=== PATIENT | female | born 1985 | race Two or more races ===

== ENCOUNTER → 2020-11-07 | Outpatient (CLI) | payer OTHER, SELFPAY | END | disposition home or self-care (01) | PROVIDERS: Visit Provider Obstetrics & Gynecology | DX: Z36.85 Encounter for antenatal screening for Streptococcus B (principal) | CPT/HCPCS: 87081 ==

== ENCOUNTER 2020-12-03 | Outpatient (CLI) | payer OTHER, SELFPAY ==
[2020-12-03 00:09] VITALS: BMI 27.4
[2020-12-03 00:17] VITALS: BP 111/73; PULSE 67; TEMP 36.3; O2SAT 96
--- NOTE | 2020-12-03 08:00 | OB.TRI.NOTE ---
HPI - General HPI Narrative NATASHA OLVERA, is a 35 F who presents at 39 6/7 weeks gestation wtih c/o decreased movement and contractions PFSH PFSH Home Medications oycilunh-ein-Kt-FA [] 1 tab PO DAILY 12/03/20 [History Last Taken 12/02/20 08:00] sertraline [Zoloft] 25 mg PO DAILY 12/03/20 [History Last Taken 12/02/20 08:00] Allergy/AdvReac Type Severity Reaction Status Date / Time No Known Allergies Allergy Verified 12/03/20 00:23 NST FHR Rate Baby A Baseline: 120 Variability:: Moderate Accelerations:: 15 x 15 Decelerations:: None NST Reactive:: Yes FHR Category:: Category I Uterine Activity:: 06/12 Assessment & Plan (1) 39 weeks gestation of : PLAN: Reactive NST Cervix 1cm, unchanged from prior exam Movement improved on observation d/c home
== END 2020-12-03 01:00 | disposition home or self-care (01) ==
LOC: WPOUT 00:07 → OBT 00:08
PROVIDERS: Referring Provider Obstetrics & Gynecology; Visit Provider Obstetrics & Gynecology
DX: O36.8130 Decreased fetal movements, third trimester, not applicable or unspecified (principal); O62.9 Abnormality of forces of labor, unspecified; Z3A.39 39 weeks gestation of pregnancy
CPT/HCPCS: 59025; 59050

== ENCOUNTER → 2023-03-24 | Outpatient (CLI) | payer BC, SELFPAY ==
[2023-03-29 18:07] LABS: Chlamydia By Nucleic Acid AMP Negative (Negative); Gonococcus By Nucleic Acid AMP Negative (Negative)
== END | disposition home or self-care (01) ==
LOC: LABSPEC 16:53
PROVIDERS: PCP Family Medicine; Visit Provider Registered Nurse
DX: Z34.90 Encounter for supervision of normal pregnancy, unspecified, unspecified trimester (principal)
CPT/HCPCS: 87086; 87491; 87591

== ENCOUNTER → 2023-04-12 | Outpatient (CLI) | payer BC, SELFPAY ==
[2023-04-12 08:08] LABS: Absolute Lymphocyte Count 1.59 X10^3/uL (0.83-4.51); Absolute Neutrophil Count 5.1 X10^3/uL (2.0-7.7); Basophil# 0.04 X10^3/uL; Basophil% 0.5 % (0-1); Eosinophil# 0.17 X10^3/uL; Eosinophils% 2.3 % (0-5); Hematocrit 38.3 % (37-47); Hemoglobin 12.4 g/dL (12.0-15.0); Lymphocyte # 1.59 X10^3/ul (0.83-4.51); Lymphocyte % 21.5 % (19-41); Mean Corp Hgb Conc 32.4 g/dL (32-36); Mean Corpuscular Hgb 28.1 pg (27.0-32.0); Mean Corpuscular Volume 86.8 fL (81-99); Mean Platelet Vol. 9.4 fl (6.2-12.0); Monocyte# 0.45 X10^3/uL; Monocyte% 6.1 % (0-10); NRBC Flagged by Analyzer 0 % (0-5); Neutrophil # 5.11 X10^3/uL (2.7-7.7); Neutrophil % 69.2 % (47-70); Platelet Count 342 K/mm3 (150-450); RBC Distribution Width CV 12.8 % (11.6-14.6); RBC Distribution Width SD 40.5 fl (35.1-43.9); Red Blood Count 4.41 M/mm3 (4.2-5.4); White Blood Count 7.4 K/mm3 (4.4-11.0)
[2023-04-12 08:35] LABS: NATERA MAILED SPECIMEN
[2023-04-12 09:31] LABS: HIV - WCH Non-Reactive (Nonreactive); Hepatitis B Surface Antigen Non-Reactive (Nonreactive); Hepatitis C Antibody Non-Reactive (Nonreactive); Rubella IgG Reactive (Nonreactive); Syphilis Antibodies Non-reactive
== END | disposition home or self-care (01) ==
LOC: LAB 07:34
PROVIDERS: PCP Family Medicine; Referring Provider Registered Nurse; Visit Provider Registered Nurse
DX: Z34.01 Encounter for supervision of normal first pregnancy, first trimester (principal)
CPT/HCPCS: 36415; 85025; 86703; 86762; 86780; 86803; 86850; 86900; 86901; 87340

== ENCOUNTER → 2023-07-23 | Outpatient (CLI) | payer BC, SELFPAY ==
[2023-07-23 10:41] LABS: Absolute Lymphocyte Count 1.19 X10^3/uL (0.83-4.51); Basophil# 0.04 X10^3/uL; Basophil% 0.3 % (0-1); Eosinophil# 0.12 X10^3/uL; Hematocrit 33.7 % (37-47); Hemoglobin 11.2 g/dL (12.0-15.0); Lymphocyte # 1.19 X10^3/ul (0.83-4.51); Lymphocyte % 9.9 % (19-41); Mean Corp Hgb Conc 33.2 g/dL (32-36); Mean Corpuscular Hgb 28.9 pg (27.0-32.0); Mean Corpuscular Volume 87.1 fL (81-99); Mean Platelet Vol. 9.8 fl (6.2-12.0); Monocyte# 0.64 X10^3/uL; Monocyte% 5.3 % (0-10); NRBC Flagged by Analyzer 0 % (0-5); Neutrophil # 10.01 X10^3/uL (2.7-7.7); Neutrophil % 82.9 % (47-70); Platelet Count 288 K/mm3 (150-450); RBC Distribution Width CV 13.2 % (11.6-14.6); RBC Distribution Width SD 41.1 fl (35.1-43.9); Red Blood Count 3.87 M/mm3 (4.2-5.4); White Blood Count 12.1 K/mm3 (4.4-11.0)
[2023-07-23 11:29] LABS: HIV - WCH Non-Reactive (Nonreactive); Syphilis Antibodies Non-reactive
[2023-07-23 11:37] LABS: Glucose Challenge Gest 1H 50g 101 mg/dL (70-140)
== END | disposition home or self-care (01) ==
LOC: LAB 10:05
PROVIDERS: PCP Family Medicine; Referring Provider Obstetrics & Gynecology; Visit Provider Obstetrics & Gynecology
DX: O09.90 Supervision of high risk pregnancy, unspecified, unspecified trimester (principal); Z3A.00 Weeks of gestation of pregnancy not specified; Z13.1 Encounter for screening for diabetes mellitus
CPT/HCPCS: 36415; 82950; 85025; 86703; 86780

== ENCOUNTER → 2023-09-29 | Outpatient (CLI) | payer BC, SELFPAY ==
--- NOTE | 2023-09-29 10:04 | US_ITS ---
STUDY: SECOND AND THIRD TRIMESTER OBSTETRICAL ULTRASOUND - LIMITED REASON FOR EXAM: Female, 38 years old AMA LMP: PRIOR ULTRASOUND: None. TECHNIQUE: Transabdominal TECHNICAL QUALITY: Adequate. FINDINGS: There is a single intrauterine fetus. The fetus is in a cephalic presentation. There is demonstrated cardiac activity with a heart rate of 132 bpm. There is a normal amniotic fluid volume. The largest amniotic fluid pocket measures 5.5 cm. The amniotic fluid index (AYLIN) is 13.6 cm. The placenta is posterior in location and is not low lying. There are Grade 1. placental changes. The cervix was not visualized. BIOMETRY: BPD: 9.2: 37 weeks, 1 days HC: 33.1: 37 weeks, 5 days AC: 31.8: 35 weeks, 5 days FL: 6.7: 34 weeks, 2 days Age by LMP: 35 weeks, 6 days. GELACIO by LMP: 10/28/2023. age by prior US: weeks, days. GELACIO by prior US: . age by current US: 36 weeks, 3 days. GELACIO by current US: 10/24/2023. Estimated weight: 2740 grams, +/- 411 grams, 45 percentile. Gender: US/OB Limited With Biometrics IMPRESSION: Single live fetus in a vertex presentation. survey not performed on this exam. Placenta is grade 1 and is not low-lying. Cervix is closed. age by current US: 36 weeks, 3 days. GELACIO by current US: 10/24/2023. Estimated weight: 2740 grams, +/- 411 grams, 45 percentile. Electronically Signed: Francisco Orellana MD at 17:59 EDT ,
== END | disposition home or self-care (01) ==
LOC: US 10:03
PROVIDERS: PCP Family Medicine; Referring Provider Nurse Practitioner Women's Health; Visit Provider Nurse Practitioner Women's Health
DX: Z34.90 Encounter for supervision of normal pregnancy, unspecified, unspecified trimester (principal)
CPT/HCPCS: 76816

== ENCOUNTER 2023-10-08 17:01 | Outpatient (CLI) | payer BC, SELFPAY | END 2023-10-08 23:59 | disposition home or self-care (01) | LOC: LABSPEC 17:03 | PROVIDERS: PCP Family Medicine; Referring Provider Obstetrics & Gynecology; Visit Provider Obstetrics & Gynecology | DX: O09.90 Supervision of high risk pregnancy, unspecified, unspecified trimester (principal); Z3A.37 37 weeks gestation of pregnancy | CPT/HCPCS: 87081 ==

== ENCOUNTER 2023-10-22 11:08 | Outpatient (CLI) | payer BC, SELFPAY ==
--- NOTE | 2023-10-22 11:28 | US_ITS ---
STUDY: SECOND AND THIRD TRIMESTER OBSTETRICAL ULTRASOUND - LIMITED REASON FOR EXAM: Female, 38 years old low amniotic fluid LMP: January 21, 2023. PRIOR ULTRASOUND: None. TECHNIQUE: Transabdominal TECHNICAL QUALITY: Adequate. FINDINGS: There is a single intrauterine fetus. The fetus is in a cephalic presentation. There is demonstrated cardiac activity with a heart rate of 144 bpm. There is a normal amniotic fluid volume. The largest amniotic fluid pocket measures 6.9 cm. The amniotic fluid index (AYLIN) is 9.5 to cm. The placenta is fundal in location. There are Grade 1 placental changes. BIOMETRY: Age by LMP: 39 weeks, 1 days. GELACIO by LMP: October 28, 2023. US/OB Limited (No Biometrics) IMPRESSION: Unremarkable fluid index is within normal limits. Electronically Signed: Cole Zhu MD at 13:57 EDT ,
[2023-10-22 11:43] VITALS: BP 109/72; PULSE 72; O2SAT 90
[2023-10-22 11:44] VITALS: PULSE 71; O2SAT 96
--- NOTE | 2023-10-23 07:47 | OB.TRI.HP_ITS ---
HPI - General General Date of Service: 10/22/23 HPI Narrative NATASHA OLVERA, is a 38 F who presents at 39 weeks with low AYLIN on portable us in office, sent to for extended monitoring and formal ultrasound. +fm, denied ctx/lof/vb. Maternal Data Information GELACIO Calculator Estimated Delivery Date Method Current WG Current Estimate 10/28/23 LMP (Certain) 39w 2d PFSH PFSH Medical History Encounter for induction of labor Precipitous delivery 39 weeks gestation of Home Medications ?Medication ?Instructions ?Recorded ?Last Taken ?Type gzcuowom-xrw-Ng-FA 1 mg 1 tab PO DAILY 12/03/20 12/02/20 08:00 History tablet ondansetron 4 mg disintegrating 4 mg PO Q8H #30 tabs 03/15/23 Unknown Rx tablet sertraline 25 mg tablet (Zoloft) 25 mg PO DAILY 10/13/23 Unknown History Allergy/AdvReac Type Severity Reaction Status Date / Time No Known Allergies Allergy Verified 10/22/23 10:40 Family History Mother Thyroid cancer, Onset Age: 37 Brain aneurysm Polycystic kidney disease Brother Polycystic kidney disease Surgical History [place] teeth extracted Social History adopted: No household members: spouse and children number of children: 2 current occupational status: employed 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 current occupational exposures/hazards: No pets and animals: No history of recent travel: Yes ([place], [place], [place]) out of state: Yes out of country: No sexually active: Yes Smoking Status: Never smoker alcohol intake: current alcohol intake frequency: holidays/special occasions only details: not while substance use type: does not use well-balanced diet: daily or most days caffeine: No eating out: 4 or more times/week during the past year weight has: remained stable what type of physical activity do you participate in: aerobics and weight training frequency: 3-4 times per week duration: 15-30 minutes/day justina/restoration: [employer] seatbelt use: always do you feel safe at home: Yes 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 Date Name GA/Weeks Outcome Route Bth Weight Infant Gen Labor Lgth Anesthesia Del Locatn Provider FOB 10/21/18 Manuel 41 live - full term 8#10oz Female 17 hrs epidural Solomon Narendra 12/05/20 Christy 40 live - full term 7#10oz Female 9 hrs none Home(not planned) none Narendra Delivery Date: 10/21/18 Last Updated by: Ronda Reyez IOL post dates Delivery Date: 12/05/20 Last Updated by: Ronda Reyez Squad delivered baby at home. Visit Details Expected Delivery Route/Plan Labor Preferences- CB/BF classes: No labor support person: Narendra labor intervention preferences: [] pain management options preferred: limited cut cord/dad catch: [] : [] PP control planned: [] discussed possible routes of delivery and associated risks: [] special requests: [] Plans Covid status: [] Flu vaccine: [] Tdap vaccine: done Rhogam: [na LARC form signed: done Problem list reviewed and updated with the most current plan of care details and appropriate orders placed. Relevant counseling for the gestational age provided. Continue routine care and follow up unless otherwise noted in visit no jordy/problem list details OB Flowsheet Initial Weight: 147 lb Date -?-?-?-?-?-?-?-?-?-?-?-?- EGA Weight BP Urine Prot -?-?-?-?-?-?-?-?-?-?-?-?- Glucose FHR FuHt Pres Dilation -?-?-?-?-?-?-?-?-?-?-?-?- Effaced St Visit Note 03/24/23 -?-?-?-?-?-?-?-?-?-?-?-?- 8w 6d 147 lb 4 oz (+4 oz) 117/71 -?-?-?-?-?-?-?-?-?-?-?-?- 180 -?-?-?-?-?-?-?-?-?-?-?-?- LC- CRL con with LMP. accepts nipt. 04/19/23 -?-?-?-?-?-?-?-?-?-?-?-?- 12w 4d 146 lb 8 oz (-8 oz) 97/63 Negative -?-?-?-?-?-?-?-?-?-?-?-?- Negative 160 -?-?-?-?-?-?-?-?-?-?-?-?- LC-no vb/crampin g. [facility] referral for anatomy ordered. no concerns today. 05/27/23 -?-?-?-?-?-?-?-?-?-?-?-?- 18w 0d 152 lb (+5 lb) 118/58 Trace -?-?-?-?-?-?-?-?-?-?-?-?- Negative 154 -?-?-?-?-?-?-?-?-?-?-?-?- MH-No VB. Feelin g movement. MFM US today. Nausea much improved. 06/24/23 -?-?-?-?-?-?-?-?-?-?-?-?- 22w 0d 158 lb (+11 lb) 108/64 Negative -?-?-?-?-?-?-?-?-?-?-?-?- Negative 150 -?-?-?-?-?-?-?-?-?-?-?-?- SM- no vb lof go od fm no regualr ctx 07/23/23 -?-?-?-?-?-?-?-?-?-?-?-?- 26w 1d 164 lb (+17 lb) 118/66 Negative -?-?-?-?-?-?-?-?-?-?-?-?- Negative 150 -?-?-?-?-?-?-?-?-?-?-?-?- LC-no vb/ctx/lof . good fm. LC-no vb/ctx/lof. good fm. p assed glucola 08/17/23 -?-?-?-?-?-?-?-?-?-?-?-?- 29w 5d 164 lb (+17 lb) 106/65 Trace -?-?-?-?-?-?-?-?-?-?-?-?- Negative 145 30 -?-?-?-?-?-?-?-?-?-?-?-?- kw- no vb/lof/ct x. good fm. Tdap LARC today. desires PP tubal- to schedule PP visit with physician to use as pre op visit. 08/31/23 -?-?-?-?-?-?-?-?-?-?-?-?- 31w 5d 167 lb 6 oz (+20 lb 6 oz) 102/65 Negative -?-?-?-?-?-?-?-?-?-?-?-?- Negative 161 31 -?-?-?-?-?-?-?-?-?-?-?-?- MH-No VB, LOF. G ood Fm. Denies concerns 09/16/23 -?-?-?-?-?-?-?-?-?-?-?-?- 34w 0d 169 lb (+22 lb) 169 lb (+22 lb) 95/60 Negative -?-?-?-?-?-?-?-?-?-?-?-?- Negative 145 34 -?-?-?-?-?-?-?-?-?-?-?-?- SM- no vb lof go od fm no reuglar ctx 09/29/23 -?-?-?-?-?-?-?-?-?-?-?-?- 35w 6d 170 lb 6 oz (+23 lb 6 oz) 104/67 Negative -?-?-?-?-?-?-?-?-?-?-?-?- Negative 145 35 -?-?-?-?-?-?-?-?-?-?-?-?- JV- no lof, vagi nal bleeding, or dec fm. thinking about starting celexa now. gbs next visit. 10/08/23 -?-?-?-?-?-?-?-?-?-?-?-?- 37w 1d 170 lb 8 oz (+23 lb 8 oz) 107/67 Negative -?-?-?-?-?-?-?-?-?-?-?-?- Negative 140 37 Cephalic 1 -?-?-?-?-?-?-?-?-?-?-?-?- SM- no vb lof go od fm no regular 10/13/23 -?-?-?-?-?-?-?-?-?-?-?-?- 37w 6d 171 lb 6 oz (+24 lb 6 oz) 105/66 Trace -?-?-?-?-?-?-?-?-?-?-?-?- Negative 137 36 Cephalic 1 -?-?-?-?-?-?-?-?-?-?-?-?- JV- (error on la st note, not celexa, sertraline 25mg) JV- (error on last note, not celexa, sertraline 25mg). consider AYLIN next visit if fundal height gets lower. 10/22/23 -?-?-?-?-?-?-?-?-?-?-?-?- 39w 1d 172 lb 6 oz (+25 lb 6 oz) 106/69 Negative -?-?-?-?-?-?-?-?-?-?-?-?- Negative 134 36 Cephalic -?-?-?-?-?-?-?-?-?-?-?-?- JV- aylin at [facility] is 6.2. sending to L&D to perform growth and formal AYLIN. NST FHR Rate Baby A Baseline: 130 Variability:: Moderate Accelerations:: 15 x 15 Decelerations:: None NST Reactive:: Yes FHR Category:: Category I Uterine Activity:: none Assessment & Plan (1) Follow-up for low amniotic fluid volume, : COMMENT: AYLIN 9cm on formal scan. PLAN: Patient presents for triage evaluation secondary to low appearing fluid on portable ultrasound in office. FHT: Moderate variability reactive no decelerations category I tracing Page: Contractions Assessment and plan: Reactive NST, reassuring maternal and status patient discharged to home to follow-up in office. See problem list details for additional plan information. Charges/Coding Procedures Urinary/Genital 52xxx-59xxx: 75647-18 non-stress test Interp
--- NOTE | 2023-10-23 07:47 | OB.TRI.NOTE ---
HPI - General General Date of Service: 10/22/23 HPI Narrative NATASHA OLVERA, is a 38 F who presents at 39 weeks with low AYLIN on portable us in office, sent to for extended monitoring and formal ultrasound. +fm, denied ctx/lof/vb. Maternal Data Information GELACIO Calculator Estimated Delivery Date Method Current WG Current Estimate 10/28/23 LMP (Certain) 39w 2d PFSH PFSH Medical History Encounter for induction of labor Precipitous delivery 39 weeks gestation of Home Medications ?Medication ?Instructions ?Recorded ?Last Taken ?Type mjldotbm-puk-Mh-FA 1 mg 1 tab PO DAILY 12/03/20 12/02/20 08:00 History tablet ondansetron 4 mg disintegrating 4 mg PO Q8H #30 tabs 03/15/23 Unknown Rx tablet sertraline 25 mg tablet (Zoloft) 25 mg PO DAILY 10/13/23 Unknown History Allergy/AdvReac Type Severity Reaction Status Date / Time No Known Allergies Allergy Verified 10/22/23 10:40 Family History Mother Thyroid cancer, Onset Age: 37 Brain aneurysm Polycystic kidney disease Brother Polycystic kidney disease Surgical History [place] teeth extracted Social History adopted: No household members: spouse and children number of children: 2 current occupational status: employed 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 current occupational exposures/hazards: No pets and animals: No history of recent travel: Yes ([place], [place], [place]) out of state: Yes out of country: No sexually active: Yes Smoking Status: Never smoker alcohol intake: current alcohol intake frequency: holidays/special occasions only details: not while substance use type: does not use well-balanced diet: daily or most days caffeine: No eating out: 4 or more times/week during the past year weight has: remained stable what type of physical activity do you participate in: aerobics and weight training frequency: 3-4 times per week duration: 15-30 minutes/day justina/samaritan: Religious seatbelt use: always do you feel safe at home: Yes 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 Date Name GA/Weeks Outcome Route Bth Weight Infant Gen Labor Lgth Anesthesia Del [place] Provider FOB 10/21/18 Manuel 41 live - full term 8#10oz Female 17 hrs epidural Wallace Narendra 12/05/20 Christy 40 live - full term 7#10oz Female 9 hrs none Home(not planned) none Narendra Delivery Date: 10/21/18 Last Updated by: Ronda Reyez IOL post dates Delivery Date: 12/05/20 Last Updated by: Ronda Reyez Squad delivered baby at home. Visit Details Expected Delivery Route/Plan Labor Preferences- CB/BF classes: No labor support person: Narendra labor intervention preferences: [] pain management options preferred: limited cut cord/dad catch: [] : [] PP control planned: [] discussed possible routes of delivery and associated risks: [] special requests: [] Plans Covid status: [] Flu vaccine: [] Tdap vaccine: done Rhogam: [na LARC form signed: done Problem list reviewed and updated with the most current plan of care details and appropriate orders placed. Relevant counseling for the gestational age provided. Continue routine care and follow up unless otherwise noted in visit notes/problem list details OB Flowsheet Initial Weight: 147 lb Date <del>?</del> EGA Weight BP Urine Prot <del>?</del> Glucose FHR FuHt Pres Dilation <del>?</del> Effaced St Visit Note 03/24/23 <del>?</del> 8w 6d 147 lb 4 oz (+4 oz) 117/71 <del>?</del> 180 <del>?</del> LC- CRL con with LMP. accepts nipt. 04/19/23 <del>?</del> 12w 4d 146 lb 8 oz (-8 oz) 97/63 Negative <del>?</del> Negative 160 <del>?</del> LC-no vb/cramping. mfm referral for anatomy ordered. no concerns today. 05/27/23 <del>?</del> 18w 0d 152 lb (+5 lb) 118/58 Trace <del>?</del> Negative 154 <del>?</del> MH-No VB. Feeling movement. MFM US today. Nausea much improved. 06/24/23 <del>?</del> 22w 0d 158 lb (+11 lb) 108/64 Negative <del>?</del> Negative 150 <del>?</del> SM- no vb lof good fm no regualr ctx 07/23/23 <del>?</del> 26w 1d 164 lb (+17 lb) 118/66 Negative <del>?</del> Negative 150 <del>?</del> LC-no vb/ctx/lof. good fm. LC-no vb/ctx/lof. good fm. passed glucola 08/17/23 <del>?</del> 29w 5d 164 lb (+17 lb) 106/65 Trace <del>?</del> Negative 145 30 <del>?</del> kw- no vb/lof/ctx. good fm. Tdap LARC today. desires PP tubal- to schedule PP visit with physician to use as pre op visit. 08/31/23 <del>?</del> 31w 5d 167 lb 6 oz (+20 lb 6 oz) 102/65 Negative <del>?</del> Negative 161 31 <del>?</del> MH-No VB, LOF. Good Fm. Denies concerns 09/16/23 <del>?</del> 34w 0d 169 lb (+22 lb) 169 lb (+22 lb) 95/60 Negative <del>?</del> Negative 145 34 <del>?</del> SM- no vb lof good fm no reuglar ctx 09/29/23 <del>?</del> 35w 6d 170 lb 6 oz (+23 lb 6 oz) 104/67 Negative <del>?</del> Negative 145 35 <del>?</del> JV- no lof, vaginal bleeding, or dec fm. thinking about starting celexa now. gbs next visit. 10/08/23 <del>?</del> 37w 1d 170 lb 8 oz (+23 lb 8 oz) 107/67 Negative <del>?</del> Negative 140 37 Cephalic 1 <del>?</del> SM- no vb lof good fm no regular 10/13/23 <del>?</del> 37w 6d 171 lb 6 oz (+24 lb 6 oz) 105/66 Trace <del>?</del> Negative 137 36 Cephalic 1 <del>?</del> JV- (error on last note, not celexa, sertraline 25mg) JV- (error on last note, not celexa, sertraline 25mg). consider AYLIN next visit if fundal height gets lower. 10/22/23 <del>?</del> 39w 1d 172 lb 6 oz (+25 lb 6 oz) 106/69 Negative <del>?</del> Negative 134 36 Cephalic <del>?</del> JV- aylin at bedside is 6.2. sending to L&D to perform growth and formal AYLIN. NST FHR Rate Baby A Baseline: 130 Variability:: Moderate Accelerations:: 15 x 15 Decelerations:: None NST Reactive:: Yes FHR Category:: Category I Uterine Activity:: none Assessment & Plan (1) Follow-up for low amniotic fluid volume, : COMMENT: AYLIN 9cm on formal scan. PLAN: Patient presents for triage evaluation secondary to low appearing fluid on portable ultrasound in office. FHT: Moderate variability reactive no decelerations category I tracing [place]: Contractions Assessment and plan: Reactive NST, reassuring maternal and status patient discharged to home to follow-up in office. See problem list details for additional plan information. Charges/Coding Procedures Urinary/Genital 52xxx-59xxx: 50814-04 non-stress test Interp
== END 2023-10-22 13:00 | disposition home or self-care (01) ==
LOC: WPOUT 11:22 → WP 11:23
PROVIDERS: PCP Family Medicine; Referring Provider Registered Nurse; Visit Provider Registered Nurse
DX: O41.03X0 Oligohydramnios, third trimester, not applicable or unspecified (principal); Z3A.39 39 weeks gestation of pregnancy
CPT/HCPCS: 59025; 59050; 76815; 99221; G0378

== ENCOUNTER 2023-10-29 19:46 | Inpatient (IN) | payer BC, SELFPAY ==
[2023-10-29 19:04] VITALS: BMI 28.8
[2023-10-29 19:18] VITALS: BP 109/66; PULSE 74; RESP 16; TEMP 36.7
[2023-10-29 19:19] VITALS: PULSE 77; O2SAT 98
[2023-10-29 19:40] LABS: ROM Internal Control Test YES-OK TO RESULT pt. (Internal QC)
[2023-10-29 19:41] LABS: ROM Patient Test POSITIVE (Negative); Record Kit Lot#, ROM+ K1866
[2023-10-29] MEDS: Lactated Ringers 1,000 ML 50 ML IV (20:15)
[2023-10-29 20:33] LABS: Absolute Lymphocyte Count 1.81 X10^3/uL (0.83-4.51); Absolute Neutrophil Count 5.3 X10^3/uL (2.0-7.7); Basophil# 0.04 X10^3/uL; Basophil% 0.5 % (0-1); Eosinophil# 0.12 X10^3/uL; Eosinophils% 1.5 % (0-5); Hematocrit 35.3 % (37-47); Hemoglobin 11.6 g/dL (12.0-15.0); Lymphocyte # 1.81 X10^3/ul (0.83-4.51); Mean Corp Hgb Conc 32.9 g/dL (32-36); Mean Corpuscular Hgb 27.5 pg (27.0-32.0); Mean Corpuscular Volume 83.6 fL (81-99); Mean Platelet Vol. 10.2 fl (6.2-12.0); Monocyte# 0.53 X10^3/uL; Monocyte% 6.7 % (0-10); NRBC Flagged by Analyzer 0 % (0-5); Neutrophil # 5.32 X10^3/uL (2.7-7.7); Neutrophil % 67.7 % (47-70); Platelet Count 261 K/mm3 (150-450); RBC Distribution Width CV 13.5 % (11.6-14.6); RBC Distribution Width SD 41.3 fl (35.1-43.9); Red Blood Count 4.22 M/mm3 (4.2-5.4); White Blood Count 7.9 K/mm3 (4.4-11.0)
[2023-10-29 21:11] LABS: Syphilis Antibodies Non-reactive
[2023-10-29 22:42] VITALS: BP 99/57; PULSE 64; RESP 16; TEMP 36.8
[2023-10-29 23:40] VITALS: BP 101/53; PULSE 63; RESP 16; TEMP 36.7; O2SAT 98
[2023-10-29] MEDS: LACTATED RINGERS 500 ML 999 ML IV (23:50)
[2023-10-30] VITALS (38 sets, daily range): BP systolic 86–121; BP diastolic 54–78; PULSE 59–75; RESP 14–16; TEMP 36.2–37.1; O2SAT 97–99
[2023-10-30] MEDS: fentaNYL-bupivacaine (epidural) 100 ML BAG EPIDURAL (01:00)
[2023-10-30] MEDS: Oxytocin 15 Units/NS 250ml 15 UNITS/250 ML IV.SOLN 2 UNITS IV (01:33)
[2023-10-30] MEDS: Lactated Ringers 1,000 ML 200 ML IV (06:10)
[2023-10-30] MEDS: Oxytocin 15 Units/NS 250ml 15 UNITS/250 ML IV.SOLN 83 UNITS IV (07:02)
--- NOTE | 2023-10-30 07:04 | HP.PCM.OB_ITS ---
HPI - General General Date of Admission: 10/29/23 HPI Narrative NATASHA OLVERA, is a 38 @ 40w2d F who presents iwth spontaneous ROM today with quesitonable leaking for 2 days. no vb good fm n oregular ctx 1-2 cm dilated Maternal Data Information GELACIO Calculator Estimated Delivery Date Method Current WG Current Estimate 10/28/23 LMP (Certain) 40w 2d PFSH PFSH Medical History Encounter for induction of labor Precipitous delivery 39 weeks gestation of Home Medications ?Medication ?Instructions ?Recorded ?Last Taken ?Type voytdyky-vex-Fx-FA 1 mg 1 tab PO DAILY 12/03/20 12/02/20 08:00 History tablet ondansetron 4 mg disintegrating 4 mg PO Q8H #30 tabs 03/15/23 Unknown Rx tablet sertraline 25 mg tablet (Zoloft) 25 mg PO DAILY 10/13/23 Unknown History Allergy/AdvReac Type Severity Reaction Status Date / Time No Known Allergies Allergy Verified 10/29/23 19:16 Family History Mother Thyroid cancer, Onset Age: 37 Brain aneurysm Polycystic kidney disease Brother Polycystic kidney disease Surgical History [place] teeth extracted Social History adopted: No household members: spouse and children number of children: 2 current occupational status: employed current occupation: [employer] current occupational exposures/hazards: No pets and animals: No history of recent travel: Yes ([place], [place], [place]) out of state: Yes out of country: No sexually active: Yes Smoking Status: Never smoker alcohol intake: current alcohol intake frequency: holidays/special occasions only details: not while substance use type: does not use well-balanced diet: daily or most days caffeine: No eating out: 4 or more times/week during the past year weight has: remained stable what type of physical activity do you participate in: aerobics and weight training frequency: 3-4 times per week duration: 15-30 minutes/day justina/taoism: Spiritism seatbelt use: always do you feel safe at home: Yes 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 Date Name GA/Weeks Outcome Route Bth Weight Infant Gen Labor Lgth Anesthesia Del Locatn Provider FOB 10/21/18 Manuel 41 live - full term 8#10oz Female 17 hrs epidural [place] Narendra 12/05/20 Christy 40 live - full term 7#10oz Female 9 hrs none Home(not planned) none Narendra Delivery Date: 10/21/18 Last Updated by: Ronda Reyez IOL post dates Delivery Date: 12/05/20 Last Updated by: Ronda Reyez Squad delivered baby at home. Visit Details Expected Delivery Route/Plan Labor Preferences- CB/BF classes: No labor support person: Narendra labor intervention preferences: [] pain management options preferred: limited cut cord/dad catch: [] : [] PP control planned: [] discussed possible routes of delivery and associated risks: [] special requests: [] Plans Covid status: [] Flu vaccine: [] Tdap vaccine: done Rhogam: [na LARC form signed: done Problem list reviewed and updated with the most current plan of care details and appropriate orders placed. Relevant counseling for the gestational age provided. Continue routine care and follow up unless otherwise noted in visit notes/problem list details OB Flowsheet Initial Weight: 147 lb Date -?-?-?-?-?-?-?-?-?-?-?-?- EGA Weight BP Urine Prot -?-?-?-?-?-?-?-?-?-?-?-?- Glucose FHR FuHt Pres Dilation -?-?-?-?-?-?-?-?-?-?-?-?- Effaced St Visit Note 03/24/23 -?-?-?-?-?-?-?-?-?-?-?-?- 8w 6d 147 lb 4 oz (+4 oz) 117/71 -?-?-?-?-?-?-?-?-?-?-?-?- 180 -?-?-?-?-?-?-?-?-?-?-?-?- LC- CRL con with LMP. accepts nipt. 04/19/23 -?-?-?-?-?-?-?-?-?-?-?-?- 12w 4d 146 lb 8 oz (-8 oz) 97/63 Negative -?-?-?-?-?-?-?-?-?-?-?-?- Negative 160 -?-?-?-?-?-?-?-?-?-?-?-?- LC-no vb/crampin g. [facility] referral for anatomy ordered. no concerns today. 05/27/23 -?-?-?-?-?-?-?-?-?-?-?-?- 18w 0d 152 lb (+5 lb) 118/58 Trace -?-?-?-?-?-?-?-?-?-?-?-?- Negative 154 -?-?-?-?-?-?-?-?-?-?-?-?- MH-No VB. Feelin g movement. MFM US today. Nausea much improved. 06/24/23 -?-?-?-?-?-?-?-?-?-?-?-?- 22w 0d 158 lb (+11 lb) 108/64 Negative -?-?-?-?-?-?-?-?-?-?-?-?- Negative 150 -?-?-?-?-?-?-?-?-?-?-?-?- SM- no vb lof go od fm no regualr ctx 07/23/23 -?-?-?-?-?-?-?-?-?-?-?-?- 26w 1d 164 lb (+17 lb) 118/66 Negative -?-?-?-?-?-?-?-?-?-?-?-?- Negative 150 -?-?-?-?-?-?-?-?-?-?-?-?- LC-no vb/ctx/lof . good fm. LC-no vb/ctx/lof. good fm. p assed glucola 08/17/23 -?-?-?-?-?-?-?-?-?-?-?-?- 29w 5d 164 lb (+17 lb) 106/65 Trace -?-?-?-?-?-?-?-?-?-?-?-?- Negative 145 30 -?-?-?-?-?-?-?-?-?-?-?-?- kw- no vb/lof/ct x. good fm. Tdap LARC today. desires PP tubal- to schedule PP visit with physician to use as pre op visit. 08/31/23 -?-?-?-?-?-?-?-?-?-?-?-?- 31w 5d 167 lb 6 oz (+20 lb 6 oz) 102/65 Negative -?-?-?-?-?-?-?-?-?-?-?-?- Negative 161 31 -?-?-?-?-?-?-?-?-?-?-?-?- MH-No VB, LOF. G ood Fm. Denies concerns 09/16/23 -?-?-?-?-?-?--?-?-?-?-?-?- 34w 0d 169 lb (+22 lb) 169 lb (+22 lb) 95/60 Negative -?-?-?-?-?-?-?-?-?-?-?-?- Negative 145 34 -?-?-?-?-?-?-?-?-?-?-?-?- SM- no vb lof go od fm no reuglar ctx 09/29/23 -?-?-?-?-?-?-?-?-?-?-?-?- 35w 6d 170 lb 6 oz (+23 lb 6 oz) 104/67 Negative -?-?-?-?-?-?-?-?-?-?-?-?- Negative 145 35 -?-?-?-?-?-?-?-?-?-?-?-?- JV- no lof, vagi nal bleeding, or dec fm. thinking about starting celexa now. gbs next visit. 10/08/23 -?-?-?-?-?-?-?-?-?-?-?-?- 37w 1d 170 lb 8 oz (+23 lb 8 oz) 107/67 Negative -?-?-?-?-?-?-?-?-?-?-?-?- Negative 140 37 Cephalic 1 -?-?-?-?-?-?-?-?-?-?-?-?- SM- no vb lof go od fm no regular 10/13/23 -?-?-?-?-?-?-?-?-?-?-?-?- 37w 6d 171 lb 6 oz (+24 lb 6 oz) 105/66 Trace -?-?-?-?-?-?-?-?-?-?-?-?- Negative 137 36 Cephalic 1 -?-?-?-?-?-?-?-?-?-?-?-?- JV- (error on la st note, not celexa, sertraline 25mg) JV- (error on last note, not celexa, sertraline 25mg). consider AYLIN next visit if fundal height gets lower. 10/22/23 -?-?-?-?-?-?-?-?-?-?-?-?- 39w 1d 172 lb 6 oz (+25 lb 6 oz) 106/69 Negative -?-?-?-?-?-?-?-?-?-?-?-?- Negative 134 36 Cephalic -?-?-?-?-?-?-?-?-?-?-?-?- JV- aylin at [facility] is 6.2. sending to L&D to perform growth and formal AYLIN. 10/28/23 -?-?-?-?-?-?-?-?-?-?-?-?- 40w 0d 174 lb (+27 lb) 106/67 -?-?-?-?-?-?-?-?-?-?-?-?- 140 35 Cephalic 2 -?-?-?-?-?-?-?-?-?-?-?-?- 80 -1 JV- no lof , vaginal bleeding, or dec fm. recent us was normal. suspect low fh due to low station. IOL set up for tuesday 10/31 NST FHR Rate Baby A Baseline: 130 Variability:: Moderate Accelerations:: 15 x 15 Decelerations:: None NST Reactive:: Yes FHR Category:: Category I Uterine Activity:: irregular ROS Constitutional Constitutional: Reports systems reviewed and no addt'l complaints, except as documented Eyes Eyes: Denies change in vision ENT HEENT: Reports systems reviewed and no addt'l complaints, except as documented; Denies headache(s) Cardiovascular Cardiovascular: Reports systems reviewed and no addt'l complaints, except as documented; Denies chest pain or dyspnea Respiratory/Chest Respiratory/Chest: Reports systems reviewed and no addt'l complaints, except as documented Gastrointestinal Gastrointestinal: Reports systems reviewed and no addt'l complaints, except as documented; Denies abdominal pain Genitourinary Genitourinary: Reports systems reviewed and no addt'l complaints, except as documented, contractions Details: present (irregular) and movement Details: present; Denies dysuria or genital lesions Musculoskeletal Musculoskeletal: Reports systems reviewed and no addt'l complaints, except as documented Neurologic Neurologic: Reports systems reviewed and no addt'l complaints, except as documented Endocrine Endocrinology: Reports systems reviewed and no addt'l complaints, except as documented Vital Signs Vital Signs Vital Signs: 10/29/23 19:18 10/29/23 19:18 10/29/23 19:18 Temperature Temperature Source Temporal Pulse Rate 74 Respiratory Rate Blood Pressure 109/66 BP Systolic 109 BP Diastolic 66 Pulse Ox 10/29/23 19:18 10/29/23 19:18 10/29/23 19:19 Temperature 98.0 F Temperature Source Pulse Rate 77 Respiratory Rate 16 Blood Pressure BP Systolic BP Diastolic Pulse Ox 10/29/23 19:19 10/29/23 22:42 10/29/23 22:42 Temperature Temperature Source Pulse Rate 64 Respiratory Rate Blood Pressure 99/57 L BP Systolic 99 BP Diastolic 57 Pulse Ox 98 10/29/23 22:42 10/29/23 22:42 10/29/23 22:42 Temperature 98.2 F Temperature Source Temporal Pulse Rate Respiratory Rate 16 Blood Pressure BP Systolic BP Diastolic Pulse Ox 10/29/23 23:40 10/29/23 23:40 10/29/23 23:40 Temperature Temperature Source Temporal Pulse Rate 63 Respiratory Rate Blood Pressure 101/53 L BP Systolic 101 BP Diastolic 53 Pulse Ox 10/29/23 23:40 10/29/23 23:40 10/29/23 23:40 Temperature 98.0 F Temperature Source Pulse Rate Respiratory Rate 16 Blood Pressure BP Systolic BP Diastolic Pulse Ox 98 10/30/23 00:32 10/30/23 00:32 10/30/23 00:32 Temperature Temperature Source Pulse Rate 65 Respiratory Rate Blood Pressure 119/71 BP Systolic 119 BP Diastolic 71 Pulse Ox 98 10/30/23 00:37 10/30/23 00:37 10/30/23 00:37 Temperature Temperature Source Pulse Rate 69 Respiratory Rate Blood Pressure 112/68 BP Systolic 112 BP Diastolic 68 Pulse Ox 99 10/30/23 00:42 10/30/23 00:42 10/30/23 00:42 Temperature Temperature Source Pulse Rate 71 71 Respiratory Rate Blood Pressure 104/62 BP Systolic 104 BP Diastolic 62 Pulse Ox 10/30/23 00:42 10/30/23 00:47 10/30/23 00:47 Temperature Temperature Source Pulse Rate 63 Respiratory Rate Blood Pressure BP Systolic BP Diastolic Pulse Ox 98 99 10/30/23 00:48 10/30/23 00:48 10/30/23 00:52 Temperature Temperature Source Pulse Rate 67 Respiratory Rate Blood Pressure 112/64 108/56 L BP Systolic 112 108 BP Diastolic 64 56 Pulse Ox 10/30/23 00:52 10/30/23 00:52 10/30/23 00:56 Temperature Temperature Source Temporal Pulse Rate 74 Respiratory Rate Blood Pressure BP Systolic BP Diastolic Pulse Ox 99 10/30/23 00:56 10/30/23 00:56 10/30/23 00:57 Temperature 98.3 F Temperature Source Pulse Rate Respiratory Rate 16 Blood Pressure 105/59 L BP Systolic 105 BP Diastolic 59 Pulse Ox 10/30/23 00:57 10/30/23 00:57 10/30/23 01:02 Temperature Temperature Source Pulse Rate 71 68 Respiratory Rate Blood Pressure BP Systolic BP Diastolic Pulse Ox 99 10/30/23 01:02 10/30/23 01:03 10/30/23 01:03 Temperature Temperature Source Pulse Rate 67 Respiratory Rate Blood Pressure 105/55 L BP Systolic 105 BP Diastolic 55 Pulse Ox 98 10/30/23 01:07 10/30/23 01:07 10/30/23 01:08 Temperature Temperature Source Pulse Rate 63 66 Respiratory Rate Blood Pressure 99/55 L BP Systolic 99 BP Diastolic 55 Pulse Ox 10/30/23 01:08 10/30/23 01:12 10/30/23 01:12 Temperature Temperature Source Pulse Rate 61 Respiratory Rate Blood Pressure 99/56 L BP Systolic 99 BP Diastolic 56 Pulse Ox 98 10/30/23 01:13 10/30/23 01:13 10/30/23 01:18 Temperature Temperature Source Pulse Rate 62 Respiratory Rate Blood Pressure 112/65 BP Systolic 112 BP Diastolic 65 Pulse Ox 98 10/30/23 01:18 10/30/23 01:18 10/30/23 01:23 Temperature Temperature Source Pulse Rate 63 Respiratory Rate Blood Pressure 113/61 BP Systolic 113 BP Diastolic 61 Pulse Ox 97 10/30/23 01:23 10/30/23 01:23 10/30/23 02:34 Temperature Temperature Source Temporal Pulse Rate 62 Respiratory Rate Blood Pressure BP Systolic BP Diastolic Pulse Ox 97 10/30/23 02:34 10/30/23 02:34 10/30/23 02:34 Temperature Temperature Source Pulse Rate 61 Respiratory Rate 16 Blood Pressure 107/63 BP Systolic 107 BP Diastolic 63 Pulse Ox 10/30/23 02:34 10/30/23 02:34 10/30/23 04:00 Temperature 98.2 F Temperature Source Pulse Rate Respiratory Rate Blood Pressure 93/55 L BP Systolic 93 BP Diastolic 55 Pulse Ox 97 10/30/23 04:00 10/30/23 04:00 10/30/23 04:00 Temperature Temperature Source Temporal Pulse Rate 61 Respiratory Rate 16 Blood Pressure BP Systolic BP Diastolic Pulse Ox 10/30/23 04:00 10/30/23 05:17 10/30/23 05:17 Temperature 98.4 F Temperature Source Pulse Rate 66 Respiratory Rate Blood Pressure 92/54 L BP Systolic 92 BP Diastolic 54 Pulse Ox 10/30/23 05:17 10/30/23 05:17 10/30/23 05:17 Temperature Temperature Source Temporal Pulse Rate Respiratory Rate 16 Blood Pressure BP Systolic BP Diastolic Pulse Ox 97 10/30/23 05:17 10/30/23 06:04 10/30/23 06:04 Temperature 97.2 F L Temperature Source Temporal Pulse Rate Respiratory Rate 16 Blood Pressure BP Systolic BP Diastolic Pulse Ox 10/30/23 06:04 10/30/23 06:05 10/30/23 06:05 Temperature 97.4 F L Temperature Source Pulse Rate 71 Respiratory Rate Blood Pressure 86/54 L BP Systolic 86 BP Diastolic 54 Pulse Ox 10/30/23 06:05 10/30/23 06:06 10/30/23 06:06 Temperature Temperature Source Pulse Rate 72 Respiratory Rate Blood Pressure 96/57 L BP Systolic 96 BP Diastolic 57 Pulse Ox 98 10/30/23 06:26 10/30/23 06:26 10/30/23 06:38 Temperature Temperature Source Pulse Rate 65 Respiratory Rate Blood Pressure 104/69 BP Systolic 104 BP Diastolic 69 Pulse Ox 99 10/30/23 06:38 10/30/23 06:53 10/30/23 06:53 Temperature Temperature Source Pulse Rate 67 66 Respiratory Rate Blood Pressure 108/73 BP Systolic 108 BP Diastolic 73 Pulse Ox Weight Weight: 173 lb Body Mass Index (BMI) 28.8 Physical Exam Const alert, oriented x3, no apparent distress and healthy appearing HEENT normocephalic and moist oral mucous membranes Head and Scalp: atraumatic Neck full ROM, no lymphadenopathy, supple and thyroid normal General: trachea midline Lymph Lymphatic: no lymphadenopathy noted Chest inspection of chest normal Resp normal respiratory effort Cardio regular rate GI normal to inspection, nondistended, normoactive bowel sounds, soft to palpation and non-tender Inspection: gravid external exam normal Manual OB Exam: estimated gestational size appropriate, presentation cephalic, dilated, effaced and station Extremity normal to inspection General Extremity: Negative for edema Skin no rashes or lesions noted Neuro no focal motor deficits and deep tendon reflexes 2+ bilaterally Motor Exam: strength 5/5 throughout and clonus absent Psych mental status grossly normal Labs Labs Labs: Blood Type O POSITIVE Antibody Screen NEGATIVE Hct 35.3 % (37-47) L Hgb 11.6 g/dL (12.0-15.0) L Pap Smear Negative Obstetrics Ultrasound Syphilis Total Ab Non-reactive Rubella IgG Antibody Reactive (Nonreactive) Hep Bs Antigen Non-Reactive (Nonreactive) Hepatitis C Antibody Non-Reactive (Nonreactive) Chlamydia DNA (MINNIE) Negative (Negative) N.gonorrhoeae DNA (MINNIE) Negative (Negative) HIV 1&2 Antibody Non-Reactive (Nonreactive) Glucose 1 Hr 50 gm 101 mg/dL (70-140) Assessment & Plan (1) History of precipitous delivery: COMMENT: delivered at home with EMS, not planned. interested in elective IOL around 40 weeks to prevent. (2) Anxiety: COMMENT: would like to restart zoloft around 36 weeks. (3) Family history of polycystic kidney: COMMENT: Mother and Brother (4) Advanced maternal age (AMA) in : COMMENT: growth US at 36 weeks(45% EFW and AC 54%). delivery by 39- 40 weeks. (5) Supervision of high-risk : QUALIFIERS: Trimester: third trimester Qualified Code(s): O09.93 - Supervision of high risk , unspecified, third trimester COMMENT: PRR , GELACIO 10/28/23 surprise PC Christy Jackson, Narendra (6) : QUALIFIERS: Weeks of gestation: 40 weeks Qualified Code(s): Z3A.40 - 40 weeks gestation of COMMENT: GBS neg, NIPT low risk, declined ntd and carrier testing. nl anatomy
--- NOTE | 2023-10-30 07:07 | EX.PCM.OBRPT ---
Assessment & Plan (1) : QUALIFIERS: Weeks of gestation: 40 weeks Qualified Code(s): Z3A.40 - 40 weeks gestation of COMMENT: GBS neg, NIPT low risk, declined ntd and carrier testing. nl anatomy (2) Supervision of high-risk : QUALIFIERS: Trimester: third trimester Qualified Code(s): O09.93 - Supervision of high risk , unspecified, third trimester COMMENT: PRR , GELACIO 10/28/23 surprise PC Christy Jackson, Narendra (3) Advanced maternal age (AMA) in : COMMENT: growth US at 36 weeks(45% EFW and AC 54%). delivery by 39- 40 weeks. (4) Family history of polycystic kidney: COMMENT: Mother and Brother (5) Anxiety: COMMENT: would like to restart zoloft around 36 weeks. (6) History of precipitous delivery: COMMENT: delivered at home with EMS, not planned. interested in elective IOL around 40 weeks to prevent. (7) Follow-up for low amniotic fluid volume, : COMMENT: AYLIN 9cm on formal scan. (8) SROM (spontaneous rupture of membranes): (9) Vaginal delivery: COMMENT: SM SROM 40 boy roula Maternal Data Information GELACIO Calculator Estimated Delivery Date Method Current WG Current Estimate 10/28/23 LMP (Certain) 40w 2d Vaginal Delivery Operative Information Date of Procedure: 10/30/23 Pre-Operative Diagnosis: see a/p diagnoses Post-Operative Diagnosis: same Surgery / Procedure Performed: Spontaneous Vaginal Delivery Type of Anesthesia: Epidural Special Medications: none Estimated Blood Loss: 200 Fluids Replaced: crystalloid Findings Description of Procedure: Patient began pushing and delivered the head in the JANUARY presentation. The head was delivered atraumatically . The anterior and posterior shoulders delivered without complication followed by the rest of the infant and the infant was placed on the maternal abdomen. Delayed cord clamping was employed for approximately 60 seconds. Cord was clamped and cut and gentle traction was applied to the cord and the placenta delivered spontaneously immediately following it was noted to be intact with three-vessel cord. The perineum and vagina were inspected and noted to have a first degree perineal laceration which was repaired in the usual fashion with 3-0 vicryl rapide. . EBL was 200 cc. Patient and tolerated delivery well. Amniotic Fluid Description: Clear Placental Delivery Description: Spontaneous Placenta Disposition: [facility] Cord Vessel Description: 3 Vessels Cord Entanglement: None Delayed Cord Clamping: Yes Post Vaginal Delivery Medications Given After Delivery: IV Pitocin Episiotomy Description: None Complication Complications: None Procedures Urinary/Genital [id number]: [id number] Vaginal Delivery [facility]
--- NOTE | 2023-10-30 07:10 | DCINST_ITS ---
Discharge Instructions Diet Discharge Diet: No restrictions Activity Discharge Activity: Return to Normal Activity, May Not Drive (while taking narcotic pain medications.) and May Shower May resume sexual activity in: 4-6 weeks Dressing / Incision Call your doctor if your incision/area has: Continuous Slow Oozing, Sudden Increased Bleeding, Increased Pain/ Swelling, Increased Redness and Foul Smelling Discharge Follow Up Care Please Follow Up With: Gretel Martini MD When: Call [phone] to make an appointment with your doctor in 6 weeks. If you had elevated blood pressure or 4th degree laceration, you will need to be seen in 2 weeks. Test Results: Test results from this visit will be discussed in further detail at your follow- up appointment, if applicable. Discharge Plan Admission Admit Date/Time: 10/29/23 19:46 Attending Provider: Gretel Martini Primary Care Provider: Zachary Funk Discharge Orders/Prescriptions Prescriptions: No Action sertraline [Zoloft] 25 mg tablet 25 mg PO DAILY 1 mg Tablet 1 tab PO DAILY ondansetron 4 mg tablet,disintegrating 4 mg PO Q8H Qty: 30 0RF Referrals / Follow Up: Zachary Funk MD [Primary Care Provider] -
[2023-10-30] MEDS: Sertraline 50 MG Tablet 25 MG PO (13:00)
[2023-10-31] VITALS (8 sets, daily range): BP systolic 99–118; BP diastolic 51–72; PULSE 61–82; RESP 16; TEMP 36.4–36.7; O2SAT 95–97
[2023-10-31] MEDS: Naproxen 500 MG Tablet PO (01:23)
--- NOTE | 2023-10-31 07:00 | PCM.PN.OB ---
Subjective Subjective Patient doing well without complaints. Tolerating PO. Ambulating and voiding without difficulty. feeding well. Denies chest pain, shortness of breath, calf pain/swelling, fevers, chills, lightheadedness. Objective Data Objective Data Vital Signs: Vital Signs Temp Pulse Resp BP Pulse Ox O2 Del Method 98.0 F 61 16 113/60 97 Room Air 10/31/23 04:00 10/31/23 04:00 10/31/23 04:00 10/31/23 04:00 10/31/23 04:00 10/31/23 04:00 Oxygen Delivery Method Room Air Weight: 173 lb Body Mass Index (BMI) 28.8 Intake & Output: Intake and Output for Last 24 Hours 10/29/23 10/30/23 10/31/23 23:59 23:59 23:59 Intake Total 2051.47 / 2051.47 Output Total 2700 / 2700 Balance -648.53 / -648.53 Lab / Micro Data 10/29/23 20:15 ROS Constitutional Constitutional: Reports systems reviewed and no addt'l complaints, except as documented Cardiovascular Cardiovascular: Reports systems reviewed and no addt'l complaints, except as documented Respiratory/Chest Respiratory/Chest: Reports systems reviewed and no addt'l complaints, except as documented Gastrointestinal Gastrointestinal: Reports systems reviewed and no addt'l complaints, except as documented Physical Exam Const alert, oriented x3 and no apparent distress HEENT Head and Scalp: atraumatic Resp normal respiratory effort GI soft to palpation and non-tender Bimanual Exam - Vag & Uterus: uterus non-tender Uterus Palpation: uterus fundus firm (below Umbilicus) Assessment & Plan (1) Vaginal delivery: COMMENT: SM SROM 40 [address] [place] PLAN: Plan s/p PPD # 1 1. routine post delivery care 2. breast feeding- support given 3. rh positive 4. rubella immune
[2023-10-31] MEDS: Senna/Docusate Sodium 1 Tablet PO (09:00)
[2023-10-31] MEDS: Sertraline 50 MG Tablet 25 MG PO (09:01)
== END 2023-10-31 14:25 | disposition home or self-care (01) | DRG 807 ==
LOC: WPOUT 20:01 → WP 20:01
PROVIDERS: Admitting Provider Obstetrics & Gynecology; PCP Family Medicine; Referring Provider Obstetrics & Gynecology; Visit Provider Obstetrics & Gynecology
DX: O41.03X0 Oligohydramnios, third trimester, not applicable or unspecified (principal); Z37.0 Single live birth; O99.344 Other mental disorders complicating childbirth; F41.9 Anxiety disorder, unspecified; O48.0 Post-term pregnancy; O70.0 First degree perineal laceration during delivery; Z3A.40 40 weeks gestation of pregnancy; Z82.71 Family history of polycystic kidney; Z87.59 Personal history of other complications of pregnancy, childbirth and the puerperium
CPT/HCPCS: 59025; 59050; 84112; 85025; 86780; 86850; 86900; 86901; 99221; J7120; G0378

== ENCOUNTER 2024-03-03 06:07 | Day surgery (SDC) | payer BC, SELFPAY ==
[2024-02-24 13:03] LABS: Hematocrit 39.2 % (37-47); Hemoglobin 12.9 g/dL (12.0-15.0); Mean Corp Hgb Conc 32.9 g/dL (32-36); Mean Corpuscular Volume 85.2 fL (81-99); Mean Platelet Vol. 9.2 fl (6.2-12.0); Platelet Count 392 K/mm3 (150-450); RBC Distribution Width CV 14.1 % (11.6-14.6); RBC Distribution Width SD 44.2 fl (35.1-43.9); White Blood Count 7.3 K/mm3 (4.4-11.0)
[2024-03-03] VITALS (9 sets, daily range): BP systolic 95–104; BP diastolic 56–68; PULSE 59–72; RESP 16–18; TEMP 36.1–36.3; O2SAT 95–100; BMI 24.2
--- NOTE | 2024-03-03 | FALS_PTH ---
PATIENT: NATASHA OLVERA LOC: [facility] U#:[id number] AGE/SX: 38/F ROOM: RE03/03/[address]: Dr. Chely Martinez DO : 1985 BED: DIS: 03/03/2024 SPEC #: [id number] RECD: 03/03/24 12:48 STATUS: MAXIMILIAN CONWAY #: [id number] [place]: 03/03/24 00:[address]: Chely Martinez DEPT: SURGICAL PATHOLOGY RECD BY: Mario Kelly ENTERED: 03/03/24 12:48 SP TYPE: FALL TUBES OTHR DR: Dr. Zachary Funk MD Tissues: Fallopian tube Procedures: Surgery Specimen Level II HEADER OPERATION: Laparoscopic, salpingectomy PRE-OP DIAGNOSIS: Contraceptive management TISSUE SUBMITTED: Bilateral fallopian tubes MICROSCOPIC DIAGNOSIS Bilateral fallopian tubes, salpingectomy: One fallopian tube, no pathologic diagnosis. Second fallopian tube with focal mild chronic inflammation. SJ: 03/06/2024 MICROSCOPIC DESCRIPTION Slides are reviewed. GROSS DESCRIPTION Received in fixative is one container labeled with the patient's name and designated bilateral fallopian tubes. The specimen consists of bilateral fallopian tubes including fimbrial ends measuring 5.5 cm in length and 0.5 cm in diameter and 7.0cm in length and 0.5cm in diameter. The fallopian tubes are not identified as right or left. Sections reveal unremarkable cut surfaces. Associate Automation Engineer sections are submitted in two cassettes with each cassette containing one fallopian tube. / SJ: 03/03/2024 TC:3 CPT: 66758,57299
[2024-03-03 06:33] LABS: Internal QC Validated? YES +Cl - CLEAR BKGD; Pregnancy, Urine Negative Negative
--- NOTE | 2024-03-03 06:58 | PRE.ANES_ITS ---
ASA Classification* ASA Classification ASA Classification: 2 (SEE WRITTEN PRE ANESTHESIA RECORD FOR FULL ASSESSMENT) Assessment & Plan Anesthesia* Anesthesia Assessment Anesthesia Assessment: Discussed sedation and/or anesthesia options, risks, benefits, and alternatives with patient/parents/legal guardian/POA. Questions invited. The patient/parents/legal guardian/POA seems to understand and agrees to proceed with anesthesia plan. Reviewed the physical assessment, medical history, allergy history and patient home medications list prior to surgery/procedure/anesthetic and documented any changes. Performed airway and anesthesia risk assessments. Anesthesia Type Anesthesia Type: General (SEE WRITTEN PRE ANESTHESIA RECORD FOR FULL ASSESSMENT) Anesthesia Focused Assessment* Temperature: 97.4 F Pulse Rate: 68 Blood Pressure: 96/59 Respiratory Rate: 16 Pulse Ox: 95 Airway Assessment Mouth opens: >3 cm Mallampati Score: II Focused Labs Anesthesia Preop lab: CBC WBC 7.3 K/mm3 (4.4-11.0) 02/24/24 12:24 RBC 4.60 M/mm3 (4.2-5.4) 02/24/24 12:24 Hgb 12.9 g/dL (12.0-15.0) 02/24/24 12:24 Hct 39.2 % (37-47) 02/24/24 12:24 Plt Count 392 K/mm3 (150-450) 02/24/24 12:24 CHEMISTRY COAG Urine Test Negative Negative 03/03/24 06:20 Pre-Assessment Diagnosis/Proposed Procedure Planned Operative Procedure(s): (B) Laparoscopic, Salpingectomy Anesthesia History Anesthesia History - personal banking assistant: Anesthesia History - personal banking assistant Hx Hospitalization No 02/23/24 15:31 Any Problems With Anesthesia No 02/23/24 15:31 Cholinesterase deficiency No 02/23/24 15:31 You/Your Family Experience No 02/23/24 15:31 fever (hyperthermia) with Relationship Recent Exposure to Contagious No 03/03/24 06:31 Disease Does patient have nerve No 02/23/24 15:31 stimulator Patient instructed to have device shut off --Does patient have Pacemaker No 03/03/24 06:31 or ICD? When Was Last Pacemaker Check QUESTION #4 FULL TEXT: You/Your Family Experience fever (hyperthermia) with Anesthesia Last Oral Intake Last Oral intake: Last Oral Intake NPO since 23:00 03/03/24 06:31 Meds taken in AM with sips of water? Meds patient instructed to take am of surgery PONV PONV - personal banking assistant: PONV - personal banking assistant Female Yes 02/23/24 15:31 HX of Motion Sickness Yes 02/23/24 15:31 HX of N/V After Surgery No 02/23/24 15:31 Non-Smoker Yes 02/23/24 15:31 Duration of Surgery greater No 02/23/24 15:31 than 60 minutes Number of Risk Factors 3 02/23/24 15:31 PONV Score Moderate Risk 02/23/24 15:31 Height & Weight Height & Weight: Anesthesia: Height & Weight Height 5 ft 5 in 03/03/24 06:31 Weight: 66 kg 03/03/24 06:31 Body Mass Index (BMI) 24.2 03/03/24 06:31 Respiratory Assessment Respiratory Assessment - personal banking assistant: Respiratory Tract Infection Hx - personal banking assistant Hx Respiratory Tract Infection No 02/23/24 15:31 STOP Sleep Apnea STOP Sleep Apnea - personal banking assistant: STOP Sleep Apnea - personal banking assistant Hx Hypertension No 02/23/24 15:31 Hx Sleep Apnea No 02/23/24 15:31 CPAP BIPAP Do you snore loudly (louder No 02/23/24 15:31 than talking or can be heard Do you often feel tired/ No 02/23/24 15:31 fatigued/ sleepy during daytime? Has anyone observed you stop No 02/23/24 15:31 breathing during sleep? STOP Results Negative 02/23/24 15:31 QUESTION #5 FULL TEXT : Do you snore loudly (louder than talking or can be heard through closed doors)? 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 Specify any problems Hx of Preganancy in last 3 N/A 02/23/24 15:31 Months Nurse Filling Out Transfusion NBUCHER 02/23/24 15:31 & Questions: Date: 02/23/24 02/23/24 15:31 Time: 15:33 02/23/24 15:31 Patient unable to answer at this time (ie. confused, unrespo /Reproduction History /Reproductive History - personal banking assistant: /Reproductive Hx- personal banking assistant Hx Now No 02/23/24 15:31 Gestational Age (in weeks): EDC: Hx Hx Para Hx Section SAB No 02/23/24 15:31 PFSH Medical History Wears contact lenses Restless legs Non-smoker Vaginal delivery SROM (spontaneous rupture of membranes) Follow-up for low amniotic fluid volume, History of precipitous delivery Encounter for induction of labor Precipitous delivery Advanced maternal age (AMA) in Supervision of high-risk 39 weeks gestation of Home Medications ?Medication ?Instructions ?Recorded ?Last Taken ?Type wcywssar-fry-Pj-FA 1 mg 1 tab PO DAILY 12/03/20 12/02/20 08: 00 History tablet sertraline 25 mg tablet (Zoloft) 25 mg PO DAILY #90 tabs 11/03/23 Unknown Rx Allergy/AdvReac Type Severity Reaction Status Date / Time No Known Allergies Allergy Verified 03/03/24 06:31 Family History Mother Thyroid cancer, Onset Age: 37 Brain aneurysm Polycystic kidney disease Brother Polycystic kidney disease Surgical History [place] teeth extracted (~1999) Social History adopted: No household members: spouse and children number of children: 3 current occupational status: employed 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 current occupational exposures/hazards: No pets and animals: No history of recent travel: Yes ([place], [place], [place]) out of state: Yes out of country: No sexually active: Yes Smoking Status: Never smoker alcohol intake: current alcohol intake frequency: holidays/special occasions only details: not while substance use type: does not use well-balanced diet: daily or most days caffeine: No eating out: 4 or more times/week during the past year weight has: remained stable what type of physical activity do you participate in: aerobics and weight training frequency: 3-4 times per week duration: 15-30 minutes/day justina/confucianism: Jehovah'S Witness seatbelt use: always do you feel safe at home: Yes 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
[2024-03-03] MEDS: Lactated Ringers 1,000 ML 15 ML IV (07:26)
--- NOTE | 2024-03-03 07:26 | DCINST_ITS ---
Discharge Instructions Diet Discharge Diet: No restrictions Activity Discharge Activity: Return to Normal Activity, May Not Drive (for two weeks or while taking narcotic pain medications.), May Shower and May Take a Tub Bath (in 7 days) May resume sexual activity in: 1 week Weight Bearing Status: Full weight bearing Dressing / Incision Call your doctor if you observe: Using more than 1 pad per hour, Shortness of breath, Chest pain and Uncontrolled pain Suture Line Care: Avoid Pulling/Pushing and Avoid Pinching/Bending Remove Dressing in: 1 week (if present) Cleanse incision/area with: Soap & Water and Keep Dressing Clean & Dry Follow Up Care Please Follow Up With: Chely Martinez DO When: Call to make an appointment with your doctor for a follow up incision check in 1-2 weeks. Test Results: Test results from this visit will be discussed in further detail at your follow- up appointment, if applicable. Discharge Plan Admission Primary Reason for Your Visit: laparoscopic surgery Attending Provider: Cehly Martinez Primary Care Provider: Zachary Funk Instructions Print Language: Maori Discharge Orders/Prescriptions Prescriptions: New ibuprofen 800 mg tablet 800 mg PO Q8H PRN (Reason: pain) Qty: 30 0RF oxycodone-acetaminophen [Percocet] 5-325 mg tablet 1 tab PO Q4H PRN (Reason: pain) 7 Days Qty: 15 0RF Rx Instructions: 1-2 tabs q 4 hrs as needed for pain Continued [id number]-[id number]-[id number]-FA 1 mg Tablet 1 tab PO DAILY sertraline [Zoloft] 25 mg tablet 25 mg PO DAILY Qty: 90 1RF Referrals / Follow Up: Zachary Funk MD [Primary Care Provider] - Disposition Disposition (needs filled in before D/C Order can be placed): Home, Self Care
--- NOTE | 2024-03-03 07:26 | PCM.HP.BLA ---
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 Required: No Is patient in pain?: No Allergies No Known Allergies Allergy (Verified 02/11/24 08:48) Medications ?Medication ?Instructions ?Recorded ?Confirmed ?Type voqczvvt-ipb-Mx-FA 1 mg 1 tab PO DAILY 12/03/20 02/11/24 History tablet sertraline 25 mg tablet (Zoloft) 25 mg PO DAILY #90 tabs 11/03/23 02/11/24 Rx Post menopausal: No Patient : No : No PFSH Medical History History of precipitous delivery Vaginal delivery SROM (spontaneous rupture of membranes) Follow-up for low amniotic fluid volume, Advanced maternal age (AMA) in Supervision of high-risk Encounter for induction of labor Precipitous delivery 39 weeks gestation of Surgical History [place] teeth extracted Family History Mother Thyroid cancer, Onset Age: 37 Brain aneurysm Polycystic kidney diseaseBrother Polycystic kidney disease Social History adopted: No household members: spouse and children number of children: 3 current occupational status: employed 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 current occupational exposures/hazards: No pets and animals: No history of recent travel: Yes ([place], [place], [place]) out of state: Yes out of country: No sexually active: Yes Smoking Status: Never smoker alcohol intake: current alcohol intake frequency: holidays/special occasions only details: not while substance use type: does not use well-balanced diet: daily or most days caffeine: No eating out: 4 or more times/week during the past year weight has: remained stable what type of physical activity do you participate in: aerobics and weight training frequency: 3-4 times per week duration: 15-30 minutes/day justina/yazdanism: Protestant seatbelt use: always do you feel safe at home: Yes 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 She is scheduled for a laparoscopic bilateral salpingectomy. History 3 Elective abortions Hx Para 2 Spontaneous abortions Hx # Term Pregnancies 3 Ectopic pregnancies Hx # Pregnancies Multiple births # of living children 3 Past Pregnancies Del. Date Name GA/Weeks Outcome Route Bth Weight Gen Labor Lgth Anesthesia Del Locatn Provider FOB 10/21/18 Solvi 41 live - full term 8#10oz Female 17 hrs epidural [place] Narendra 12/05/20 Christy 40 live - full term 7#10oz Female 9 hrs none Home(not planned) none Narendra 10/30/23 Mina 40 live - full term 7lbs 15oz Male epidural [facility] Narendra Delivery Date: 10/21/18 Last Updated by: Ronda Reyez IOL post dates Delivery Date: 12/05/20 Last Updated by: Ronda Reyez Squad delivered baby at home. Delivery Date: 10/30/23 Last Updated by: Obdulia Boo, RN See problem list for complications and SM SROM 40 boy Jamen ROS Const ROS Unobtainable: All systems reviewed & are unremarkable except as noted in H Resp Resp: Reports system reviewed and no additional complaints, except as documented; Denies cough GI GI: Reports as per HPI Psych Psych: Reports system reviewed and no additional complaints, except as documented Exam Const General: cooperative, healthy appearing, comfortable and no acute distress Resp Effort & Inspection: normal respiratory effort Skin General: no rashes or lesions noted Psych Appearance: grossly normal Speech and Movement: speech and movement normal Coding Level of Care Code Off vis,est,level 4 Diagnoses Contraceptive management Z30.9 Preoperative exam for gynecologic surgery Z01.818 Assessment and Plan Assessment and Plan (1) Contraceptive management: Status: Acute (2) Preoperative exam for gynecologic surgery: Status: Acute Orders: Orders CBC-Complete Blood Cnt No Diff Today Z01.818 - Encounter for other preprocedural examination Type & Screen Today Plan After discussing the patient's diagnosis and treatment plan options, patient wishes to proceed with surgical management. I have discussed with the patient the risks, benefits, and alternatives of the procedure which include but are not limited to risks of anesthesia, bleeding, infection, possible damage to bowel, bladder, or surrounding vasculature which could lead to additional surgery to evaluate any complications. Patient agrees to procedure and wishes to proceed. ACOG/uptodate references given for additional information regarding procedure. plan is for laparoscopic bilateral salpingectomy.
[2024-03-03] MEDS: Bupivacaine 0.25% 30 ML Vial (08:00)
--- NOTE | 2024-03-03 08:26 | PCM.POST.ANE ---
Anesthesia: Postop Eval I Current Vital Signs Temperature: 96.9 F Pulse Rate: 72 Blood Pressure: 104/66 Respiratory Rate: 18 Pulse Ox: 98 Assessment Airway patent: Yes Spontaneous unlabored respirations: Yes nausea: No Vomiting: No Anesthesia Complication: No Fluid Hydration Crystalloid volume administer (ml): 1,000 Total IV fluid infused: 1,000 Progress Note Anesthesia document: Postop Eval 1 completed: Yes
--- NOTE | 2024-03-03 08:37 | POSTOPAN2_ITS ---
Anesthesia Postop Eval I Sum Postop Eval Completion status Anesthesia document: Postop Eval 1 completed: Yes Anesthesia Postop Eval I Summary Anesthesia Postop Eval I Summary: Anesthesia Postop Eval I: Assessment Summary Airway patent Yes 03/03/24 08:26 SEWING TECHNIQUES DEMONSTRATOR.CSIR Spontaneous unlabored Yes 03/03/24 08:26 SEWING TECHNIQUES DEMONSTRATOR.CSIR respirations Mental status nausea No 03/03/24 08:26 SEWING TECHNIQUES DEMONSTRATOR.CSIR Vomiting No 03/03/24 08:26 SEWING TECHNIQUES DEMONSTRATOR.CSIR Anesthesia Postop Eval I: Fluid Summary Crystalloid volume administer 1,000 03/03/24 08:26 SEWING TECHNIQUES DEMONSTRATOR.CSIR (ml) Colloids volume administered ( ml) Blood Product volume administered (ml) Total IV fluid infused 1,000 03/03/24 08:26 SEWING TECHNIQUES DEMONSTRATOR.CSIR Anesthesia Postop Eval I: Summary Notes Anesthesia Complication No 03/03/24 08:26 SEWING TECHNIQUES DEMONSTRATOR.CSIR Anesthesia Complication Comment: Post-operative progress note Anesthesia: Postop Eval II Evaluation Mental status: Awake Pain Level: 0 nausea: No Vomiting: No
--- NOTE | 2024-03-03 08:37 | PCM.POSTANE2 ---
Anesthesia Postop Eval I Sum Postop Eval Completion status Anesthesia document: Postop Eval 1 completed: Yes Anesthesia Postop Eval I Summary Anesthesia Postop Eval I Summary: Anesthesia Postop Eval I: Assessment Summary Airway patent Yes 03/03/24 08:26 TRAIN ANNOUNCER.CSIR Spontaneous unlabored Yes 03/03/24 08:26 TRAIN ANNOUNCER.CSIR respirations Mental status nausea No 03/03/24 08:26 TRAIN ANNOUNCER.CSIR Vomiting No 03/03/24 08:26 TRAIN ANNOUNCER.CSIR Anesthesia Postop Eval I: Fluid Summary Crystalloid volume administer 1,000 03/03/24 08:26 TRAIN ANNOUNCER.CSIR (ml) Colloids volume administered ( ml) Blood Product volume administered (ml) Total IV fluid infused 1,000 03/03/24 08:26 TRAIN ANNOUNCER.CSIR Anesthesia Postop Eval I: Summary Notes Anesthesia Complication No 03/03/24 08:26 TRAIN ANNOUNCER.CSIR Anesthesia Complication Comment: Post-operative progress note Anesthesia: Postop Eval II Evaluation Mental status: Awake Pain Level: 0 nausea: No Vomiting: No
--- NOTE | 2024-03-03 08:48 | PCM.OPRPT ---
Problems Associated Problem List Diagnoses (1) Contraceptive management: Operative Report (Standard) Operative Information Surgery/Procedure Performed: laparoscopic bilateral salpingectomy Surgeon: Chely Martinez Date of Procedure: 03/03/24 Procedure Start Time: 08:00 Procedure Stop Time: 08:18 Pre-Operative Diagnosis: desires permanent sterilization Post-Operative Diagnosis: same Select all DRAINS/GRAFTS/IMPLANTS that apply: None Type of Anesthesia: General Estimated Blood Loss: 3cc Specimen collected: Yes Description of specimen(s) removed: bilateral fallopian tubes Description of surgery: Patient was taken in the operating room and was placed under general anesthesia was prepped and draped in normal sterile fashion in the dorsal lithotomy position. Bladder was drained of clear urine and SCDs were on preoperatively. Uterus was sounded and a uterine manipulator was placed after dilating. Attention was then paid to the abdominal portion of the procedure and the umbilicus was elevated with towel clamps and injected with Marcaine and after a 5 mm incision was made and 5 mm visiport trocar was inserted into the abdomen under direct visualization with the laparoscope. The Abdomen was insufflated with CO2 gas. A left lower quadrant 5 mm port and a 5 mm port suprapubically were placed under direct visualization. Uterus was well visualized and bilateral fallopian tubes identified and bilateral tubes were elevated and transecting across the mesosalpinx and the attachment to the uterine corpus bilaterally the tubes were removed without complication. Excellent hemostasis was noted. Fallopian tubes were removed through the lower port sites without complication. Liver and upper abdomen were visualized notably within normal limits and no other gross abnormalities were seen in the abdomen. All instruments removed from the abdomen after gas was desufflated. Port sites were closed with 3-0 Monocryl Steri's and op sites were applied. All instruments removed from the vagina and patient was awoken and taken recovery in stable condition. Surgical Findings: normal bowel, normal uterus, tubes, and ovaries Flexographic Printing Machinist postdoctoral research associate: No Complications Complications: No Admit VTE Documentation VTE Present on Admission: No VTE Mechan Device Prophylaxis: SCD's VTE Pharm Prophylaxis ordered?: No Multi Select Codes Urinary/Genital Urinary/Genital CPT Codes: 67175 Laproscopic BS/O
== END 2024-03-03 09:57 | disposition home or self-care (01) ==
LOC: SDC 06:11 → AC 06:11
PROVIDERS: PCP Family Medicine; Referring Provider Obstetrics & Gynecology; Visit Provider Obstetrics & Gynecology
PROC: (CPT 58661; principal; 2024-03-03 07:15)
DX: Z30.2 Encounter for sterilization (principal); Z01.818 Encounter for other preprocedural examination; Z82.71 Family history of polycystic kidney; F41.9 Anxiety disorder, unspecified
CPT/HCPCS: 58661; 36415; 81025; 85027; 86850; 86900; 86901; 88302; J7120; A4216; J2405